=== PATIENT | male | born 1970 | race Caucasian/White ===

== ENCOUNTER → 2021-09-24 14:41 | Outpatient (CLI) | payer OTHER, SELFPAY ==
--- NOTE | 2021-09-24 14:55 | XR_ITS ---
FINAL REPORT CLINICAL HISTORY: LT HIP PAIN. no trauma FINDINGS: LEFT HIP WITH PELVIS: Three views demonstrate no acute fracture or dislocation. The joint spaces appear normal. The visualized bony structures are well aligned. No soft tissue abnormality is seen. IMPRESSION: No acute bony abnormality. Reviewed, Interpreted and Dictated by Minor Buck III, MD Transcribed by Brayan Lyman Authenticated by Minor Buck III, MD on 09/24/2021 04:54:49 PM [facility]
== END ==
PROVIDERS: PCP Internal Medicine Adolescent Medicine; Visit Provider Internal Medicine Adolescent Medicine
DX: M25.552 Pain in left hip (principal)
CPT/HCPCS: 73502

== ENCOUNTER → 2023-01-07 10:23 | Outpatient (CLI) | payer OTHER, SELFPAY ==
[2023-01-07 11:01] LABS: Erythrocyte Sedimentation Rate 6 mm/hr (0-15)
[2023-01-07 11:06] LABS: Alanine Aminotransferase 54 U/L (12-78); Albumin Level 4.3 g/dl (3.5-5.0); Albumin/Globulin Ratio 1.7 (1.1-1.8); Alkaline Phosphatase 55 U/L (38-126); Anion Gap 14.3 mEq/L (5-15); Aspartate Amino Transferase 36 U/L (17-59); Bilirubin,Total 0.5 mg/dl (0.2-1.3); Blood Urea Nitrogen 21 mg/dl (9-20); Calcium 8.7 mg/dl (8.4-10.2); Carbon Dioxide 27 mmol/L (22.0-30.0); Chloride 104 mmol/L (98-107); Cholesterol 234 mg/dl (140-200); Estimated Glomerular Filt Rate 79 ml/min (>60); GFR (African American) 96 ML/MIN (>60); Globulin 2.5 g/dL (1.3-3.2); Glucose 94 mg/dl (74-100); HDL Cholesterol 39 mg/dl (40-60); Potassium 4.3 mmoL/L (3.5-5.1); Sodium 141 mmol/L (136-145); Total Protein,Serum 6.8 g/dl (6.3-8.2); Triglycerides 251 mg/dl (30-150); VLDL Cholesterol 50 mg/dL (0-40)
[2023-01-07 11:17] LABS: C-Reactive Protein 3.6 mg/L (0-4); Direct LDL Cholesterol 136.42 mg/dL (100-129)
[2023-01-07 11:22] LABS: 25-OH Vitamin D, Total 25.9 ng/mL (30-100)
[2023-01-07 11:36] LABS: Thyroid Stimulating Hormone 0.94 uIU/mL (0.465-4.68)
[2023-01-07 11:55] LABS: Vitamin B12 229 pg/mL (239-931)
[2023-01-08 07:09] LABS: Testosterone,Total 307 ng/dL (264-916)
[2023-01-09 15:29] LABS: Anti-Cyclic Citrullinated Pept 6 units (0-19)
== END ==
PROVIDERS: PCP Nurse Practitioner Family; Visit Provider Nurse Practitioner Family
DX: Z00.00 Encounter for general adult medical examination without abnormal findings (principal); R53.83 Other fatigue; M12.9 Arthropathy, unspecified; E55.9 Vitamin D deficiency, unspecified
CPT/HCPCS: 36415; 80053; 80061; 82306; 82607; 84403; 84443; 85651; 86140; 86200

== ENCOUNTER → 2023-01-20 13:06 | Outpatient (CLI) | payer OTHER, SELFPAY ==
--- NOTE | 2023-01-20 13:12 | MR_ITS ---
FINAL REPORT CLINICAL HISTORY: PAIN IN RIGHT SHOULDER FINDINGS: Multiplanar MR imaging of the right shoulder was performed without contrast. There is a partial thickness bursal surface tear of the posterior supraspinatus tendon involving greater than 50%. There is a partial-thickness articular surface tear of the infraspinatus tendon involving greater than 50%. There is mild AC joint arthrosis. A small amount of fluid is seen in the subacromial/subdeltoid bursa. There is thickening of the joint capsule at the axillary recess consistent with adhesive capsulitis. The glenoid labrum is intact. The long head of the biceps tendon is intact. No significant glenohumeral joint effusion is seen. There is no evidence of fracture or dislocation. The musculature is intact. There is no evidence of soft tissue mass. IMPRESSION: Partial-thickness bursal surface tear of the supraspinatus tendon. Partial-thickness articular surface tear of the infraspinatus tendon. Findings consistent with adhesive capsulitis. Reviewed, Interpreted and Dictated by Minor Buck III, MD Transcribed by Peggy Tolbert Authenticated and [facility]
== END ==
PROVIDERS: PCP Nurse Practitioner Family; Visit Provider Nurse Practitioner Family
DX: M25.511 Pain in right shoulder (principal)
CPT/HCPCS: 73221

== ENCOUNTER → 2023-02-10 15:14 | Outpatient (CLI) | payer OTHER, SELFPAY ==
--- NOTE | 2023-02-10 | CA_ITS ---
APPROVED REPORT EXAM: Comprehensive 2D, Doppler, and color-flow Echocardiogram Cigarette Filter Inspector: Veronika Gavin CRT Ht: 6 ft 0 in Wt: 223lbs BSA: 2.23 BP: 110/70 mmHg Indications: Chest Pain, Murmur, Shortness of Breath, Palpitations, Fatigue, Peripheral Edema 2D Dimensions LVOT 1.76 cm (M/F) 1.5-2.5 LA Volume 35.70 mL LA Volume Index 15.60 mL/m2 (M/F) 16-34 M-Mode Dimensions RVDd 3.62 cm (0.9-2.6) LA Diam 3.65 cm (1.9-4.0) LVDd 5.10 cm (3.5-5.7) Ao Diam 3.77 cm (2.0-3.7) LVDs 3.08 cm (3.5-5.7) IVSd 1.41 cm (0.6-1.1) PWd 0.64 cm (0.6-1.1) EF (Teich) 69.90% FS 39.60% EDV (Teich) 123.80 mL TAPSE 2.12 (<1.7) ESV (Teich) 37.30 mL LV Diastology MED E' 7.70 (< 7 cm/sec) MED A' 9.00 cm/s LAT E' 10.80 (<10 cm/sec) LAT A' 11.40 cm/s Aortic Valve AO Peak GR. 5.80 mmHg Pulmonary Valve PV Peak Velocity 182.00 (50-150 cm/s) Tricuspid Valve TR P. Velocity 276.00 cm/s RAP Estimate 10.00 mmHg RVSP 40.50 mmHg Left Ventricle The left ventricle is normal size. The left ventricular systolic function is normal. The left ventricular ejection fraction is within the normal range. There is normal left ventricular wall thickness. The left ventricular diastolic function is normal. LVEF is 65%. Right Ventricle Right ventricle is mildly dilated. The right ventricular systolic function is normal. Atria The left atrium size is normal. The right atrium size is normal. There is no Doppler evidence of interatrial shunt. Aortic Valve The aortic valve is normal in structure. There is no aortic valvular stenosis. No aortic regurgitation is present. Mitral Valve The mitral valve is normal in structure. Mild mitral regurgitation. The MR jet is posteriorly directed. Tricuspid Valve The tricuspid valve leaflets are thin and pliable. Trace tricuspid regurgitation. Pulmonic Valve The pulmonary valve is normal in structure. Trace pulmonic regurgitation. Great Vessels The aortic root is normal in size. The ascending aorta is normal in size. IVC is normal in size and collapses >50% with inspiration. Pericardium There is no pericardial effusion. Other Information Study Quality: Adequate Conclusion Normal biventricular systolic function. Mildly dilated RV Mild MR Electronically signed by : Roxana Rubio, 02/11/2023 14:25:27
== END ==
PROVIDERS: PCP Nurse Practitioner Family; Visit Provider Nurse Practitioner Family
DX: R01.1 Cardiac murmur, unspecified (principal)
CPT/HCPCS: 93306

== ENCOUNTER → 2023-02-16 16:04 | Outpatient (CLI) | payer OTHER, SELFPAY | PROVIDERS: PCP Nurse Practitioner Family; Visit Provider Nurse Practitioner Family | DX: R00.1 Bradycardia, unspecified (principal) | CPT/HCPCS: 93225; 93226 ==

== ENCOUNTER → 2023-03-10 12:36 | Outpatient (CLI) | payer OTHER, SELFPAY ==
[2023-03-10 13:00] LABS: Basophils % 0.5 % (0.1-2.0); Eosinophils # 0.1 K/mm3 (0.0-0.4); Eosinophils % 1.7 % (0.1-12.0); Hematocrit 49.6 % (42.0-52.0); Hemoglobin 16.2 g/dL (14.1-18.0); Lymphocytes # 1.3 K/mm3 (0.7-4.5); Lymphocytes % 19.5 % (10-50); Mean Corpuscular HGB Conc 32.7 g/dL (31.8-35.4); Mean Corpuscular Hemoglobin 27.1 pg (27.0-31.2); Mean Corpuscular Volume 82.9 fl (80-94); Mean Platelet Volume 7.7 fl (7.4-10.4); Monocytes # 0.5 K/mm3 (0.1-1.0); Monocytes % 7.6 % (1.7-9.3); Neutrophils # 4.5 K/mm3 (1.8-7.8); Neutrophils % 70.7 % (37.0-80.0); Platelet Count 210 K/mm3 (142-424); Red Blood Count 5.98 M/mm3 (4.60-6.20); Red Cell Distribution Width 13.4 % (11.5-17.5); White Blood Count 6.4 K/mm3 (4.8-10.8)
[2023-03-10 14:52] LABS: Alanine Aminotransferase 23 U/L (12-78); Albumin Level 4.7 g/dl (3.5-5.0); Alkaline Phosphatase 53 U/L (38-126); Aspartate Amino Transferase 24 U/L (17-59); Bilirubin,Indirect 0.5 mg/dL (0.0-0.9); Bilirubin,Total 0.5 mg/dl (0.2-1.3); Bilirubin,Unconjugated 0.7 mg/dL (0.0-1.1); Total Protein,Serum 7.2 g/dl (6.3-8.2)
[2023-03-10 15:08] LABS: Free T4 (Free Thyroxine) 0.92 ng/dl (0.78-2.19)
[2023-03-10 15:23] LABS: Prostate Specific Ag Screen 1.2 ng/ml (0.0-4.0); Thyroid Stimulating Hormone 1.13 uIU/mL (0.465-4.68)
== END ==
PROVIDERS: PCP Nurse Practitioner Family; Visit Provider Internal Medicine
DX: R06.00 Dyspnea, unspecified (principal); R07.89 Other chest pain; R00.0 Tachycardia, unspecified; R00.1 Bradycardia, unspecified; R00.2 Palpitations; R35.0 Frequency of micturition; E11.9 Type 2 diabetes mellitus without complications; Z82.49 Family history of ischemic heart disease and other diseases of the circulatory system; Z12.5 Encounter for screening for malignant neoplasm of prostate
CPT/HCPCS: 36415; 80076; 84439; 84443; 85025; G0103

== ENCOUNTER → 2023-03-17 06:10 | Outpatient (CLI) | payer OTHER, SELFPAY ==
--- NOTE | 2023-03-17 | CA_ITS ---
APPROVED REPORT Exam: Exercise Treadmill Technologist: Pat Bryan, Ht: 5 ft 11 in Wt: 220 lbs BSA: 2.20 m2 HR: 46 bpm BP: 119/65 mmHg Rhythm: SINUS BRADYCARDIA Medical History Medications: Omeprazole,,,,, MeLOXICAM,,,,, Ayaka,,,,, Singulair,,,,, ClALIS,,,,, TioMAX,,,,, Allergies: No known drug allergies Cardiac Risk Factors: Smoking Stress Test Details Test: Lee HR Resting HR: 51 bpm Max Heart Rate (APMHR): 170 bpm Max HR Achieved: 171 bpm Target HR (85% APMHR): 145 bpm % of APMHR: 101 Recovery HR: 76 bpm HR response to stress: Normal HR response to stress BP Resting BP: 119.0/65 mmHg Max BP: 154/89 mmHg Recovery BP: 122.0/77.0 mmHg BP response to stress: Normal blood pressure response to stress. ECG Resting ECG: SINUS BRADYCARDIA, RIGHT AXIS DEVIATION Stress EC mm upsloping ST depression Arrhythmia: None Recovery ECG: Return to baseline within 3 minutes of recovery Recovery Arrhythmia: None Clinical Exercise duration: 10:01 min Highest Stage Achieved: Stage 4: 4.2 mph at 16% grade. Exercise capacity: 12.8 METs Overall Exercise Capacity for Age: Good Stress ECG Conclusion The patient exercised for a total of 10 minutes, 01 seconds. He achieved a total of 12.8 METS. He has good exercise capacity compared to age and sex matched peers. He has normal HR and BP response to exercise. MAX HR: 171 % OF PM: 101% MAX BP: 154/89 METS: 12.8 TEST STOPPED DUE TO: SOA, FATIGUE NO CP AT PEAK EXERCISE THERE IS 1.0MM UPSLOPING ST DEPRESSION EKG CHANGES SUGGESTIVE OF POSSIBLE ISCHEMIA WITH RAPID NORMALIZATION POST EXERCISE MYOVIEW IMAGES REPORTED SEPARATELY Test Summary REST . . . . . . . Standing REST . . . . . . . Sitting REST 03:55 0.0 0.0 51 . 119/ 65 . . Stage 1 01:00 10.0 1.7 88 . . . . Stage 1 02:00 10.0 1.7 95 . . . . Stage 1 03:00 10.0 1.7 93 . 130/ 75 . . Stage 2 01:00 12.0 2.5 104 . . . . Stage 2 02:00 12.0 2.5 106 . . . . Stage 2 03:00 12.0 2.5 112 . 142/ 80 . . Stage 3 01:00 14.0 3.4 128 . . . . Stage 3 02:00 14.0 3.4 142 . . . . Stage 3 03:00 14.0 3.4 146 . . . . Stage 4 01:00 16.0 4.2 169 . . . . Stage 4 01:01 16.0 4.2 169 . . . Stop exercise at 10:01 RECOVERY 01:00 0.0 0.0 138 . . . . RECOVERY 02:00 0.0 0.0 92 . 154/ 89 . . RECOVERY 03:00 0.0 0.0 87 . 154/ 89 . . RECOVERY 04:00 0.0 0.0 87 . 143/ 81 . . RECOVERY 05:00 0.0 0.0 77 . 122/ 77 . . RECOVERY 05:27 0.0 0.0 90 . 122/ 77 . . Electronically signed by : Roxana Rubio, 03/20/2023 19:36:14
--- NOTE | 2023-03-17 06:14 | NM_ITS ---
APPROVED REPORT Exam: Nuclear Stress Test Indication: chest pain..palpitations..fatigue..high cholesterol..family hx Patient Location: Outpatient Stress Tech: Pat Bryan PA Tech:Blank MonroyBULMARO RT(R)(N) Ht: 5 ft 11 in Wt: 220 lbs HR: 51 bpm BP: 119/65 mmHg BSA: 2.20 m2 Rhythm: NSR TID: 0.98 BMI: 30.6 History: chest pain..palpitations..fatigue..high cholesterol..family hx Procedure: Patient exercised on Lee protocol 10:01 minutes and sec, resting heart rate 51 bpm, resting blood pressure 119/65 mmHg, with exercise maximum heart rate achived was 171 bpm which is 101 % of the maximum predicted heart rate and blood pressure was 154/89 mmHg. Patient denied any complaint of chest pain. Patient has Good exercise capacity, achieved 12.8 METs of workload on treadmill, the blood pressure response to exercise was Normal. Cardiac Stress and Resting SPECT Images: Cardiac Stress and Resting SPECT images were obtained using technetium 99m Myoview 30.6 mCi stress and 10.57 mCi at rest. Resting and stress imaging in supine position demonstrate medium sized, moderate, fixed perfusion defect in the basal inferior LV wall. This is no longer visualized with prone stress imaging. Findings are suggestive of diaphragmatic attenuation. Gated imaging demonstrates normal global and regional LV systolic function. LVEF is calculated at 56%. Conclusion: Diaphragmatic attenuation is present. No definite fixed or reversible perfusion defects are present. Gated imaging demonstrates normal global and regional LV systolic function. LVEF is calculated at 56%. Electronically signed by : Roxana Rubio, 03/20/2023 19:39:23
== END ==
LOC: RAD 06:11
PROVIDERS: PCP Nurse Practitioner Family; Visit Provider Internal Medicine
DX: R00.0 Tachycardia, unspecified (principal); R00.2 Palpitations; R07.89 Other chest pain; R00.1 Bradycardia, unspecified; Z82.49 Family history of ischemic heart disease and other diseases of the circulatory system
CPT/HCPCS: 78452; 93017; A9502

== ENCOUNTER → 2023-04-14 15:31 | Outpatient (CLI) | payer OTHER, SELFPAY | LOC: RT 15:32 | PROVIDERS: PCP Nurse Practitioner Family; Visit Provider Physician Assistant | DX: G47.9 Sleep disorder, unspecified (principal); R06.83 Snoring; R40.0 Somnolence; G47.30 Sleep apnea, unspecified | CPT/HCPCS: 95806 ==

== ENCOUNTER 2023-12-26 15:59 | Outpatient (CLI) | payer OTHER, SELFPAY ==
--- NOTE | 2023-12-26 16:03 | MR_ITS ---
FINAL REPORT CLINICAL HISTORY: LOW BACK PAIN. BILATERAL LEG PAIN, NUMBNESS AND TINGLING. NO INJURY OR TRAUMA. COMPARISON: None FINDINGS: Multiplanar MR imaging of the lumbar spine was performed without contrast. On the sagittal T2-weighted images, disc degeneration is seen at multiple levels. The vertebral alignment is normal. There is no evidence of fracture. A hemangioma is present in the L3 vertebral body. The conus has an unremarkable appearance. T12-L1: There is no significant canal stenosis or neural foraminal narrowing. L1-2: There is no significant canal stenosis or neural foraminal narrowing. L2-3: An annular bulge is present. There is mild bilateral neural foraminal narrowing, and mild canal stenosis, with an AP canal diameter of 9 mm. L3-4: An annular bulge is present. There is a central protrusion which indents the thecal sac, produces bilateral L4 nerve root impingement. There is moderate narrowing of the central canal, with an AP canal diameter of 6 mm. Mild bilateral neural foraminal narrowing is present. L4-5: An annular bulge is present. There is a small left paracentral disc protrusion, with mild bilateral neural foraminal narrowing. There is mild canal stenosis with an AP canal diameter of 8 mm. L5-S1: An annular bulge is present. There is a posterior midline annular tear and central disc protrusion which mildly indents the thecal sac. There is mild bilateral neural foraminal narrowing. IMPRESSION: Multilevel lumbar degenerative changes present as described, with canal stenosis at the L2-3, L3-4, and L4-5 levels, most severe at the L3-4 level. Reviewed, Interpreted and Dictated by Minor Buck III, MD Transcribed by Kayla Samano Authenticated and [facility]
== END 2023-12-26 23:59 | disposition home or self-care (01) ==
LOC: RAD 16:00
PROVIDERS: PCP Nurse Practitioner Family; Visit Provider Nurse Practitioner Family
DX: M54.50 Low back pain, unspecified (principal)
CPT/HCPCS: 72148

== ENCOUNTER 2024-02-06 07:11 | Day surgery (SDC) | payer BC, SELFPAY ==
[2024-02-06 07:33] VITALS: BMI 32.1
[2024-02-06 07:37] VITALS: BP 123/65; PULSE 67; RESP 18; TEMP 36.1; O2SAT 96
[2024-02-06] MEDS: LACTATED RINGERS 1000ML 1,000 ML 25 ML IV (07:42)
--- NOTE | 2024-02-06 08:03 | P.PNANES_ITS ---
[facility] Disclaimer: The information contained in this section may have been updated after the patient was seen, as this information can be updated by other users. Medical History (Updated 02/06/24 @ 07:36 by Evelyn Parsons RN) No significant past medical history Surgical History (Updated 02/06/24 @ 07:36 by Evelyn Parsons RN) No significant past surgical history Family History (Updated 02/06/24 @ 07:36 by Evelyn Parsons RN) Other No significant family history Social History (Updated 02/06/24 @ 07:36 by Evelyn Parsons RN) Smoking Status: Former smoker alcohol intake: never substance use type: denies use current occupational status: other Travel in the last 8 weeks: None [facility] Anesthesia Checklist Patient Identification Patient Identification: Verbal (Name & ) Structural Data Admitted From: Home Planned Operative Procedure/s: egd/colonoscopy Consent for Planned Operative Procedure(s) Verified: Yes Airway Assessment Mallampati Score:: Class II C-Spine Mobility Assessed: Yes TMJ Mobility Assessed: Yes Dentition: Edentulous Neurological Assessment Level of Consciousness: Awake, Alert and Appropriate Anesthesia Plan Anesthesia Risk discussed: Yes Anesthesia Plan: Verified ASA Class: II Anesthesia Type: MAC
--- NOTE | 2024-02-06 08:14 | HMH.SCOPE ---
Procedure: Date: 02/06/24 Patient Date of :: 1970 Procedure Performed:: Esophagogastroduodenoscopy with biopsy Colonoscopy with polypectomy by means other than snare Indications:: Screening Dyspepsia Gastroesophageal reflux Abdominal bloating Epigastric discomfort Performing Provider:: Kan Orellana MD Referring Provider:: . Sedation:: Monitored anesthesia care Procedure:: After informed consent was obtained the patient was taken to the endoscopy suite. Sedation ensued after the patient was transferred to the left lateral decubitus position. Pulse, blood pressure, and oxygen saturation were monitored throughout the procedure. The endoscope was advanced beyond the duodenal bulb. Retroflexion within the gastric lumen was accomplished. The gastroscope was carefully removed. Digital rectal exam revealed no significant abnormality. The colonoscope was placed in position. The entire colon was evaluated. The colonoscope was carefully removed and the patient was transferred to recovery in stable condition. Please see findings and specimens below for detail. Findings:: Gastroesophageal junction at 40 cm Small sliding hiatal hernia Focal antral inflammation Punctate shallow antral ulcerations Bowel preparation moderate to poor Moderate spasticity/lack of relaxation Posterior anal canal fissure Polyp (see specimens) Specimens:: Antral biopsy (punctate ulceration) Polyp at 65 cm (cold biopsy forceps) Recommendations:: Follow-up pathology Repeat colonoscopy in 1-2 years with extended bowel preparation Consider gastroenterology consultation secondary to plethora of gastrointestinal complaints (likely defer repeat colonoscopy to the gastroenterology service) Complications:: No immediate Estimated blood obtained (mL): 1 Colonoscopy Component Colonoscopy Component Was a colonoscopy performed during today's procedure?: Yes Recommended follow up colonoscopy of at least 10 years?: No If no, follow up colonoscopy recommended in ___ years?: (See above) Reason for not recommending >/= 10 yr follow-up interval?: (See above)
[2024-02-06 08:20] VITALS: O2SAT 97
[2024-02-06 08:50] VITALS: BP 93/51; PULSE 70; RESP 16; TEMP 36.4; O2SAT 93
[2024-02-06 09:00] VITALS: BP 97/58; PULSE 61; RESP 16; O2SAT 93
[2024-02-06 09:10] VITALS: BP 122/84; PULSE 61; RESP 18; O2SAT 96
[2024-02-06 09:20] VITALS: BP 116/66; PULSE 58; RESP 18; O2SAT 98
== END 2024-02-06 09:20 | disposition home or self-care (01) ==
PROVIDERS: PCP Nurse Practitioner Family; Visit Provider Surgery
PROC: 0DJ08ZZ Inspection of Upper Intestinal Tract, Via Natural or Artificial Opening Endoscopic (ICD-10-PCS; CPT 43235; principal; 2024-02-06 08:30)
DX: R11.10 Vomiting, unspecified (principal); K21.9 Gastro-esophageal reflux disease without esophagitis; K44.9 Diaphragmatic hernia without obstruction or gangrene; Z12.11 Encounter for screening for malignant neoplasm of colon; K63.5 Polyp of colon
CPT/HCPCS: 43235; 45380; J7120

== ENCOUNTER 2024-03-15 15:00 | Outpatient (RCR) | payer BC, SELFPAY | END 2024-03-15 15:05 | disposition home or self-care (01) | LOC: PT 15:00 | PROVIDERS: Visit Provider Neurological Surgery | DX: M48.061 Spinal stenosis, lumbar region without neurogenic claudication (principal) | CPT/HCPCS: 97012; 97014; 97163; 97530; G0283 ==

== ENCOUNTER 2024-04-10 11:49 | Outpatient (CLI) | payer BC, SELFPAY | END 2024-04-10 23:59 | disposition home or self-care (01) | LOC: LAB 11:50 | PROVIDERS: PCP Nurse Practitioner Family; Visit Provider Internal Medicine Gastroenterology | DX: Z02.9 Encounter for administrative examinations, unspecified (principal) ==

== ENCOUNTER 2024-04-18 09:17 | Outpatient (CLI) | payer BC, SELFPAY ==
[2024-04-18 09:26] LABS: Adenovirus F 40/41, stool Not Detected (NotDetected); Astrovirus Not Detected (NotDetected); Campylobacter Not Detected (NotDetected); Clostridium Difficile A/B, PCR Not Detected (NotDetected); Cryptosporidium Not Detected (NotDetected); Cyclospora Cayetanesis Not Detected (NotDetected); Entamoeba histolytica Not Detected (NotDetected); Enteroaggregative E coli Not Detected (NotDetected); Enteropathogenic E coli Not Detected (NotDetected); Enterotoxigenic E coli Not Detected (NotDetected); Giardia lamblia Not Detected (NotDetected); Norovirus Not Detected (NotDetected); Plesimonas Shigalloides, PCR Not Detected (NotDetected); Rotavirus A Not Detected (NotDetected); Salmonella, PCR Not Detected (NotDetected); Sapovirus Not Detected (NotDetected); Shiga-like toxin E coli Not Detected (NotDetected); Shigella Enterovasive E coli Not Detected (NotDetected); Vibrio Cholerae Not Detected (NotDetected); Vibrio, PCR Not Detected (NotDetected); Yersinia Entercolitica, PCR Not Detected (NotDetected)
[2024-04-23 02:53] LABS: Pancreatic Elastase, Fecal >800 (>200)
== END 2024-04-18 23:59 | disposition home or self-care (01) ==
LOC: LAB 09:18
PROVIDERS: PCP Nurse Practitioner Family; Visit Provider Internal Medicine Gastroenterology
DX: K52.9 Noninfective gastroenteritis and colitis, unspecified (principal); R14.0 Abdominal distension (gaseous); R15.2 Fecal urgency; R15.0 Incomplete defecation; K60.2 Anal fissure, unspecified
CPT/HCPCS: 82656; 87506

== ENCOUNTER 2024-08-17 09:40 | Outpatient (CLI) | payer BC, SELFPAY ==
[2024-08-17 10:02] LABS: Basophils % 0.6 % (0.1-2.0); Eosinophils # 0.1 K/mm3 (0.0-0.4); Eosinophils % 1.6 % (0.1-12.0); Hematocrit 44.7 % (42.0-52.0); Hemoglobin 14.6 g/dL (14.1-18.0); Lymphocytes # 1.4 K/mm3 (0.7-4.5); Lymphocytes % 23.1 % (10-50); Mean Corpuscular HGB Conc 32.7 g/dL (31.8-35.4); Mean Corpuscular Hemoglobin 26.9 pg (27.0-31.2); Mean Corpuscular Volume 82.3 fl (80-94); Monocytes # 0.6 K/mm3 (0.1-1.0); Monocytes % 9.7 % (1.7-9.3); Neutrophils % 64.7 % (37.0-80.0); Platelet Count 244 K/mm3 (142-424); Red Blood Count 5.43 M/mm3 (4.60-6.20); White Blood Count 6.2 K/mm3 (4.8-10.8)
[2024-08-17 10:19] LABS: Alanine Aminotransferase 41 U/L (12-78); Albumin Level 4.5 g/dl (3.5-5.0); Albumin/Globulin Ratio 2.5 (1.1-1.8); Alkaline Phosphatase 55 U/L (38-126); Anion Gap 14.5 mEq/L (5-15); Aspartate Amino Transferase 31 U/L (17-59); Bilirubin,Total 0.5 mg/dl (0.2-1.3); Blood Urea Nitrogen 18 mg/dl (9-20); Calcium 9.2 mg/dl (8.4-10.2); Carbon Dioxide 25 mmol/L (22.0-30.0); Chloride 107 mmol/L (98-107); Chol/HDL Ratio 3.8 (1-3.5); Cholesterol 123 mg/dl (140-200); Estimated Glomerular Filt Rate 71 ml/min (>60); GFR (African American) 85 ML/MIN (>60); Globulin 1.8 g/dL (1.3-3.2); Glucose 93 mg/dl (74-100); HDL Cholesterol 32 mg/dl (40-60); Potassium 4.5 mmoL/L (3.5-5.1); Sodium 142 mmol/L (136-145); Total Protein,Serum 6.3 g/dl (6.3-8.2); Triglycerides 119 mg/dl (30-150); VLDL Cholesterol 24 mg/dL (0-40)
[2024-08-17 10:30] LABS: Direct LDL Cholesterol 65.93 mg/dL (100-129)
[2024-08-17 11:00] LABS: HIV Combo NEGATIVE (Negative)
[2024-08-17 11:07] LABS: Hepatitis C Ab Qual. W/ RFX NEGATIVE (Negative)
[2024-08-17 11:34] LABS: Hemoglobin A1C 5.2 % (4.0-6.0)
== END 2024-08-17 23:59 | disposition home or self-care (01) ==
LOC: LAB 09:41
PROVIDERS: PCP Internal Medicine; Visit Provider Internal Medicine
DX: Z00.00 Encounter for general adult medical examination without abnormal findings (principal); Z13.220 Encounter for screening for lipoid disorders; Z11.4 Encounter for screening for human immunodeficiency virus [HIV]; Z13.1 Encounter for screening for diabetes mellitus; Z11.59 Encounter for screening for other viral diseases
CPT/HCPCS: 36415; 80053; 80061; 83036; 85025; 86803; 87389

== ENCOUNTER 2024-09-24 06:54 | Outpatient (CLI) | payer BC, SELFPAY ==
--- NOTE | 2024-09-24 06:55 | CT_ITS ---
FINAL REPORT TECHNIQUE: Axial images through the abdomen and pelvis were performed without contrast. This study was performed with techniques to keep radiation doses as low as reasonably achievable, (ALARA). Individualized dose reduction techniques using automated exposure control or adjustment of mA and/or kV according to the patient's size were employed. CLINICAL HISTORY: evaluate for kidney stones, lower abd pain FINDINGS: Abdomen: The lung bases are clear. The liver parenchyma is homogeneous. The gallbladder is present. There are calcified granulomas in the spleen. The pancreas, adrenals and kidneys are unremarkable. Pelvis: The appendix is in the upper limits of normal in size. No surrounding inflammation is identified. The urinary bladder is attracted. The appendix is not visualized. There is no pelvic mass or inflammation. IMPRESSION: No acute abnormality. Reviewed, Interpreted and Dictated by Jesse Velasco MD Transcribed by Peggy Tolbert Authenticated and [facility]
== END 2024-09-24 23:59 | disposition home or self-care (01) ==
LOC: RAD 06:55
PROVIDERS: PCP Internal Medicine; Visit Provider Internal Medicine
DX: R10.9 Unspecified abdominal pain (principal)
CPT/HCPCS: 74176